=== PATIENT | female | born 1985 | race Caucasian/White ===

== ENCOUNTER 2022-10-08 13:38 | Emergency (ER) | payer BC, MEDICAID, SELFPAY ==
--- NOTE | ~2022-10-08 | XR_ITS ---
EXAMINATION: XR foot RT min 3V DATE: 10/08/2022 13:59 INDICATION: Right foot injury. TECHNIQUE: 4 views of right foot were obtained. COMPARISON: None. FINDINGS: Bone alignment is normal. No fracture. There is mild osteoarthritis of first metatarsophala ngeal joint. IMPRESSION: 1. No fracture. Reviewed, dictated and finalized at location A. IMPRESSION: 1. No fracture.
[2022-10-08 13:45] VITALS: BP 124/86; PULSE 75; RESP 18; TEMP 36.6; O2SAT 100
--- NOTE | 2022-10-08 13:46 | ED.LOWEXIN ---
HPI - Extremity Injury (Lower) General Chief Complaint: Extremity Injury, Lower Stated Complaint: Right foot injury Time Seen by Provider: 10/08/22 13:48 Source: patient Mode of arrival: ambulatory Limitations: no limitations History of Present Illness HPI Narrative: Trudy is a 37-year-old female patient presenting to the clinic today with complaints of right foot pain/injury. She reports she dropped a 12 lb weight on her right foot this morning. Is having pain with walking and is having numbness and the 1st 3 toes. Related Data Home Medications Medication Instructions Recorded Confirmed etonogestrel 0.12 mg-ethinyl vag ring vaginal 10/08/22 estradiol 0.015 mg/24 hr vaginal ring (EluRyng) Allergies Allergy/AdvReac Type Severity Reaction Status Date / Time tramadol Allergy Mild Unknown Verified 10/08/22 13:51 Review of Systems Review of Systems: Pertinent positives per HPI. Patient denies any fever, chills, rash, headache, visual changes, dizziness, cough, runny nose, sore throat, shortness of breath, chest pain, palpitations, nausea, vomiting, diarrhea, constipation, abdominal pain, or any urinary issues. [facility] Family History Family History Mother Breast cancer Social History Social History Smoking status: Never smoker Alcohol intake: unknown Substance use: never Comments At the time of my signature, I reviewed and agree with the nursing past medical, surgical, social, and family history. There is no relevant family history pertinent to the patient complaint. Exam Narrative: General: Well-developed, well nourished, in no apparent distress Head: Normocephalic, atraumatic. Cardio: Regular rate and rhythm, s1 and s2 normal, no murmur appreciated. Resp: Clear to auscultation bilaterally, no rhonchi, rales, wheezing or rubs. Musculoskeletal: No deformity, tender to palpation over the first metarsal/midfoot with bruising and swelling noted, grossly normal range of motion, muscle strength strong and equal, peripheral pulse strong, no edema, no cyanosis, normal gait and station Course Course Emergency Course: Portions of this record may have been created with voice recognition software. Level of Care: Express Care Visit Vital Signs Vital signs: Vital signs reviewed MDM - Extremity Injury (Lower) MDM Narrative Medical decision making narrative: At the time of visit patient is resting comfortably on the exam table. X-ray of the right foot was performed and was negative for any fracture.. I suspect patient has contusion of the right foot. Will give postop shoe and have the patient follow-up with her PCP as needed. Supportive measures were discussed with the patient she voiced understanding discharge instructions and agrees to treatment plan. Differential Diagnosis Differential diagnosis: Likely fracture of toe and other (Foot contusion, metatarsal fracture, blunt trauma) Imaging Data Radiologist's impression: [facility] [address] [place] [address] XRay Report Signed Patient: Socorro Khan : 1985 MR#: [id number] Age/Sex: 37 / F Acct:[id number] Loc: [facility]? ? ADM Date: 10/08/22Attending Dr: Ordering Physician: Sreedhar Poole APRN Date of Service: 10/08/22 Procedure(s): XR foot RT min 3V Accession Number(s): [id number] cc: Sreedhar Poole APRN; Pranav, Analisa Clifford MD~ EXAMINATION: XR foot RT min 3V DATE: 10/08/2022 13:59 INDICATION: Right foot injury. TECHNIQUE: 4 views of right foot were obtained. COMPARISON: None. FINDINGS: Bone alignment is normal. No fracture. There is mild osteoarthritis of first metatarsophalangeal joint. IMPRESSION: 1. No fracture. Reviewed, dictated and finalized at
--- NOTE | 2022-10-08 14:15 | PC.NURSE ---
PT DECLINED ICE FOR COMFORT AND A WHEELCHAIR TO RADIOLOGY
== END 2022-10-08 14:14 | disposition home or self-care (01) ==
PROVIDERS: Emergency Provider Nurse Practitioner Family; PCP Internal Medicine Gastroenterology
DX: S90.31XA Contusion of right foot, initial encounter (principal); W20.8XXA Other cause of strike by thrown, projected or falling object, initial encounter
CPT/HCPCS: 73630; 99213; G0463